=== PATIENT | female | born 1965 | race Caucasian/White ===

== ENCOUNTER → 2019-03-10 | Outpatient (CLI) | payer BC ==
[2019-03-10 16:13] LABS: T4, Free (Free Thyroxine) 1.2 ng/dL (0.80-1.80)
[2019-03-10 19:40] LABS: ACTH 7.79 pg/mL (0.00-45.99)
== END | disposition home or self-care (01) ==
LOC: LABWHC1 09:56
PROVIDERS: ATTEND Internal Medicine Endocrinology, Diabetes & Metabolism
DX: R23.2 Flushing (principal)
CPT/HCPCS: 36415; 82024; 82533; 83001; 84439; 84443; 84480

== ENCOUNTER → 2019-03-25 | Outpatient (CLI) | payer BC ==
[~2019-03-25] MED LIST: COSYNTROPIN 0.25 MG VIAL IVP ONE; SODIUM CHLORIDE 0.9% 500 ML 500 ML in EMPTY BAG 1 BAG IV PRN
[2019-03-25 09:26] VITALS: BP 154/81; PULSE 66; RESP 16; TEMP 98.8
[2019-03-25 23:04] LABS: ACTH 8.2 pg/mL (0.00-45.99)
== END | disposition home or self-care (01) ==
LOC: PROCWHC3 08:54
PROVIDERS: ATTEND Internal Medicine Endocrinology, Diabetes & Metabolism
DX: R23.2 Flushing (principal)
CPT/HCPCS: 83835; 84439; 82533; 83001; 84443; 82024; 84480; 96374; J0834; 82384

== ENCOUNTER → 2019-11-23 | Outpatient (CLI) | payer SELFPAY | END | disposition home or self-care (01) | LOC: LABWHC1 09:56 | PROVIDERS: ATTEND Otolaryngology | DX: J30.89 Other allergic rhinitis (principal) | CPT/HCPCS: 36415 ==

== ENCOUNTER → 2020-05-25 | Outpatient (CLI) | payer BC ==
--- NOTE | 2020-05-25 15:51 | US ---
EXAMINATION TYPE: US abdomen complete DATE OF EXAM: 05/25/2020 COMPARISON: NONE CLINICAL HISTORY: R10.13 epigastric pain, R10.30 Lower abd pain. EXAM MEASUREMENTS: Liver Length: 13.1 cm Gallbladder Wall: 0.1 cm CBD: 0.3 cm Spleen: 10.7 cm Right Kidney: 10.0 x 3.5 x 5.0 cm Left Kidney: 10.2 x 4.0 x 4.8 cm Pancreas: wnl as seen, tail partially obscured by overlying bowel gas Liver: wnl Gallbladder: wnl Evidence for sonographic Bergeron's sign: no CBD: wnl Spleen: wnl Right Kidney: No hydronephrosis or masses seen Left Kidney: No hydronephrosis or masses seen Upper IVC: wnl Abd Aorta: wnl IMPRESSION: 1. Visualized abdomen is unremarkable
== END | disposition home or self-care (01) ==
LOC: RADUSWWP 08:13
PROVIDERS: ATTEND Otolaryngology
DX: R10.13 Epigastric pain (principal); R10.30 Lower abdominal pain, unspecified; R22.2 Localized swelling, mass and lump, trunk; Z88.2 Allergy status to sulfonamides; Z91.048 Other nonmedicinal substance allergy status
CPT/HCPCS: 76700

== ENCOUNTER → 2021-01-16 | Outpatient (CLI) | payer SELFPAY ==
[2021-01-16 20:38] LABS: Follicle Stimulating Hormone 63.9 mIU/mL; T4, Free (Free Thyroxine) 1.2 ng/dL (0.80-1.80)
[2021-01-17 06:18] LABS: ACTH 7.39 pg/mL (0.00-45.99)
== END | disposition home or self-care (01) ==
LOC: LABWHC1 13:24
PROVIDERS: ATTEND Internal Medicine Endocrinology, Diabetes & Metabolism
DX: R61 Generalized hyperhidrosis (principal); R23.2 Flushing
CPT/HCPCS: 36415; 82024; 82533; 83001; 84439; 84443; 84480

== ENCOUNTER → 2021-01-24 | Outpatient (CLI) | payer BC | END | disposition home or self-care (01) | LOC: LABWHC1 09:12 | PROVIDERS: ATTEND Internal Medicine Endocrinology, Diabetes & Metabolism | DX: R61 Generalized hyperhidrosis (principal); R23.2 Flushing | CPT/HCPCS: 36415; 82384 ==

== ENCOUNTER 2022-07-27 12:16 | Emergency (ER) | payer OTHER ==
[2022-07-27 12:24] VITALS: TEMP 97.3
[2022-07-27] MEDS ORDERED: methylPREDNISolone SOD SUCCI 125 MG/2 ML VIAL IV STA (12:53)
[2022-07-27 13:36] LABS: Basophils # (A) 0.1 k/uL (0-0.2); Basophils % (A) 1 %; Eosinophils # (A) 0.1 k/uL (0-0.7); Eosinophils % (A) 2 %; HCT 45.4 % (34.0-46.0); HGB 15.6 gm/dL (11.4-16.0); Lymphocytes # (A) 1.5 k/uL (1.0-4.8); Lymphocytes % (A) 20 %; MCH 29.7 pg (25.0-35.0); MCHC 34.3 g/dL (31.0-37.0); MCV 86.6 fL (80.0-100.0); Mean Platelet Volume 6.9; Monocytes # (A) 0.4 k/uL (0-1.0); Monocytes % (A) 6 %; Neutrophils % (A) 68 %; Platelet Count 278 k/uL (150-450); RBC 5.25 m/uL (3.80-5.40); RDW 12.2 % (11.5-15.5); WBC 7.3 k/uL (3.8-10.6)
--- NOTE | 2022-07-27 13:52 | ED ---
Dizziness HPI - General Chief Complaint: Dizziness Stated Complaint: dizziness Time Seen by Provider: 07/27/22 12:25 Source: patient Mode of arrival: ambulatory Limitations: no limitations - History of Present Illness Initial Comments: 56-year-old female with past medical history of Mnire's and tinnitus who presents to the emergency department for vertigo. Reports that she began having tinnitus 2 weeks ago. She was seen in the ENT office. They placed her on a course of steroids. She finished the medication. On Thursday she began developing vertigo. She saw her primary care on Thursday who placed her on Valium. She has been taking the Valium and meclizine as directed without any improvement in her vertigo. States that her symptoms usually last only for half a day. The duration of her vertigo currently is uncommon for her. She denies any tinnitus at this time. Does admit to headache. No numbness, tingling or weakness in her extremities. No fevers. Denies any visual changes. Admits to some nausea without vomiting. Vertigo is worse with positional changes and better with resting. She denies any chiropractic manipulations of the neck. No recent head trauma. No other alleviating, corral boss modifying factors - Related Data Home Medications Medication Instructions Recorded Confirmed Amoxic-Pot Clav 875-125Mg 1 tab PO BID 07/27/22 07/27/22 [Augmentin 875-125] Meclizine [Antivert] 12.5 - 25 mg PO TID PRN 07/27/22 07/27/22 Simvastatin [Zocor] 20 mg PO HS 07/27/22 07/27/22 Triamterene-Hctz 37.5-25Mg 1 cap PO DAILY 07/27/22 07/27/22 [Dyazide 37.5-25 Capsule] diazePAM [Valium] 2.5 - 5 mg PO Q8H PRN 07/27/22 07/27/22 Allergies Allergy/AdvReac Type Severity Reaction Status Date / Time cefprozil [From Cefzil] Allergy Unknown Anaphylaxis Verified 07/27/22 14:43 & hives sulfamethoxazole Allergy Unknown Anaphylaxis Verified 07/27/22 14:43 [From Bactrim] & hives trimethoprim [From Bactrim] Allergy Unknown Anaphylaxis Verified 07/27/22 14:43 & hives Review of Systems ROS Statement: Those systems with pertinent positive or pertinent negative responses have been documented in the HPI. ROS Other: All systems not noted in ROS Statement are negative. Past Medical History Past Medical History: Hyperlipidemia Additional Past Medical History / Comment(s): Menieres. tinnitus History of Any Multi-Drug Resistant Organisms: None Reported Past Surgical History: AICD Additional Past Surgical History / Comment(s): D&C.(MAY 2014) Past Anesthesia/Blood Transfusion Reactions: Motion Sickness, Postoperative Nausea & Vomiting (PONV) Additional Past Anesthesia/Blood Transfusion Reaction / Comment(s): SEVERE PONV Past Psychological History: No Psychological Hx Reported Smoking Status: Never smoker Past Alcohol Use History: Occasional Past Drug Use History: None Reported - Past Family History Father Family Medical History: No Reported History General Exam Limitations: no limitations General appearance: alert, in no apparent distress Head exam: Present: atraumatic, normocephalic, normal inspection Eye exam: Present: normal appearance, PERRL, EOMI, nystagmus (lateral). Absent: scleral icterus, conjunctival injection, periorbital swelling ENT exam: Present: normal exam, mucous membranes moist Neck exam: Present: normal inspection. Absent: tenderness, meningismus, lymphadenopathy Respiratory exam: Present: normal lung sounds bilaterally. Absent: respiratory distress, wheezes, rales, rhonchi, stridor Cardiovascular Exam: Present: regular rate, normal rhythm, normal heart sounds. Absent: systolic murmur, diastolic murmur, rubs, gallop, clicks GI/Abdominal exam: Present: soft, normal bowel sounds. Absent: distended, tenderness, guarding, rebound, rigid Extremities exam: Present: normal inspection, full ROM, normal capillary refill. Absent: tenderness, pedal edema, joint swelling, calf tenderness Back exam: Present: normal inspection Neurological exam: Present: alert, oriented X3, CN II-XII intact Psychiatric exam: Present: normal affect, normal mood Skin exam: Present: warm, dry, intact, normal color. Absent: rash Course Vital Signs 07/27/22 07/27/22 07/27/22 12:19 15:14 16:22 Temperature 97.3 F L Pulse Rate 95 87 89 Respiratory 20 17 17 Rate Blood Pressure 124/89 142/95 141/82 O2 Sat by Pulse 98 98 99 Oximetry EKG Findings - EKG Comments: EKG Findings:: EKG demonstrates sinus rhythm with rate of 77. AZ interval 129. QRS 81. QTC of 400. No acute ST segment elevations or depressions Medical Decision Making - Medical Decision Making Was pt. sent in by a medical professional or institution? PCP office Did you speak to anyone other than the patient for history? no Did you review nursing and triage notes? yes and i agree Were old charts reviewed? no Differential Diagnosis? cerebellar stroke, vbi, menieres, bppv EKG interpreted by me (3pts min.)? yes X-rays interpreted by me (1pt min.)? no CT interpreted by me (1pt min.)? yes U/S interpreted by me (1pt. min.)? no What testing was considered but not performed? (CT, X-rays, U/S, labs)? Why? no What meds were considered but not given? Why? none Did you discuss the management of the patient with other professionals? no Did you reconcile home meds? yes Was smoking cessation discussed for >3mins.? no Was critical care preformed (if so, how long)? no Were there social determinants of health that impacted care today? How? (Homelessness, low income, unemployed, alcoholism, drug addiction, transportation, low edu. Level, literacy, decrease access to med. care, residential, rehab)? no Was there de-escalation of care discussed even if they declined? (Discuss DNR or withdrawal of care, Hospice)? no What co-morbidities impacted this encounter? (DM, HTN, Smoking, COPD, CAD, Cancer, CVA, Hep., AIDS, mental health diagnosis, sleep apnea, morbid obesity)? none Was patient admitted / discharged? Upon arrival patient was placed into room 18. History and physical exam is performed. IV access was established. Laboratory studies were conducted. Lab studies are reviewed and within normal limits. She was given 5 mg of IV Valium and [address] of Solu-Medrol. CT of the head and neck are performed which demonstrated no acute process. I reevaluated the patient and she continues to have vertiginous symptoms. Scopolamine patch was applied. I discussed diagn osis, differential and treatment options. The patient has taken steroids, meclizine, Valium and hydrochlorothiazide in the outpatient setting. Informed her that due to the extensive outpatient treatment which has been failing, that I do recommend admission for neurology consultation and possible MRI. Patient refused admission. States that she has appointment with ENT tomorrow that she would prefer to follow up with. I did discuss the possible treatment options. Patient requesting IV diuretic for which she was given 40 mg doses IV. I recommend that the patient take Valium 3 times daily. May additionally take Claritin, Benadryl or meclizine. Follow up with the ENT tomorrow. Should she be agreeable to further workup and admission she should return to the emergency room. Patient agreeable and was discharged home in stable condition Undiagnosed new problem with uncertain prognosis? yes Drug Therapy requiring intensive monitoring for toxicity (Heparin, Nitro, Insulin, Cardizem)? no Were any procedures done? no Diagnosis/symptom? acute vertigo Acute, or Chronic, or Acute on Chronic? acute on chronic Uncomplicated (without systemic symptoms) or Complicated (systemic symptoms)? complicated Side effects of treatment? sedation, swelling, weight gain, adrenal insuff Exacerbation, Progression, or Severe Exacerbation] severe exacerbation Poses a threat to life or bodily function? yes - Lab Data Result diagrams: 07/27/22 13:13 07/27/22 13:13 Lab Results 07/27/22 07/27/22 Range/Units 13:13 13:13 WBC 7.3 (3.8-10.6) k/uL RBC 5.25 (3.80-5.40) m/uL Hgb 15.6 (11.4-16.0) gm/dL Hct 45.4 (34.0-46.0) % MCV 86.6 (80.0-100.0) fL MCH 29.7 (25.0-35.0) pg MCHC 34.3 (31.0-37.0) g/dL RDW 12.2 (11.5-15.5) % Plt Count 278 (150-450) k/uL MPV 6.9 Neutrophils % 68 % Lymphocytes % 20 % Monocytes % 6 % Eosinophils % 2 % Basophils % 1 % Neutrophils # 5.0 (1.3-7.7) k/uL Lymphocytes # 1.5 (1.0-4.8) k/uL Monocytes # 0.4 (0-1.0) k/uL Eosinophils # 0.1 (0-0.7) k/uL Basophils # 0.1 (0-0.2) k/uL Sodium 139 (137-145) mmol/L Potassium 4.3 (3.5-5.1) mmol/L Chloride 105 (98-107) mmol/L Carbon Dioxide 27 (22-30) mmol/L Anion Gap 7 mmol/L BUN 17 (7-17) mg/dL Creatinine 0.88 (0.52-1.04) mg/dL Est GFR (CKD-EPI)AfAm 85 (>60 ml/min/1.73 sqM) Est GFR (CKD-EPI)NonAf 74 (>60 ml/min/1.73 sqM) Glucose 105 H (74-99) mg/dL Calcium 9.2 (8.4-10.2) mg/dL Total Bilirubin 0.7 (0.2-1.3) mg/dL AST 21 (14-36) U/L ALT 28 (4-34) U/L Alkaline Phosphatase 74 (38-126) U/L Total Protein 7.1 (6.3-8.2) g/dL Albumin 4.2 (3.5-5.0) g/dL Disposition Clinical Impression: Positional vertigo Disposition: HOME SELF-CARE Condition: Stable Instructions (If sedation given, give patient instructions): Vertigo (ED) Additional Instructions: Take 5 mg of valium every 8 hours. Take benadryl every 6 hours (2 hours spaced out after your valium). Continue the water pill starting tomorrow. Return should you agree to further testing and admission. Is patient prescribed a controlled substance at d/c from ED?: No Referrals: Live Haider MD [Primary Care Provider] - 1-2 days Umberto Moulton MD [STAFF PHYSICIAN] - 1-2 days Time of Disposition: 16:03
[2022-07-27 14:05] LABS: Albumin 4.2 g/dL (3.5-5.0); Calcium 9.2 mg/dL (8.4-10.2); Potassium 4.3 mmol/L (3.5-5.1); Total Bilirubin 0.7 mg/dL (0.2-1.3); Total Protein 7.1 g/dL (6.3-8.2)
[2022-07-27] MEDS ORDERED: SCOPOLAMINE 1 MG/72 HR PATCH TRANSDERM STA (14:45)
--- NOTE | 2022-07-27 15:00 | CT ---
EXAMINATION TYPE: CT brain wo con DATE OF EXAM: 07/27/2022 COMPARISON: None HISTORY: Vertigo CT DLP: mGycm Automated exposure control for dose reduction was used. Ventricles have normal size. There is no mass effect or midline shift. No sign of intracranial hemorr susan. Calvarium is intact. There is normal aeration of the mastoid sinuses. Skull base is intact. No evidence of posterior fossa mass. IMPRESSION: Normal unenhanced head CT scan.
[2022-07-27 15:17] VITALS: RESP 17
--- NOTE | 2022-07-27 15:29 | CT ---
EXAMINATION TYPE: CT angio head neck DATE OF EXAM: 07/27/2022 COMPARISON: HISTORY: Vertigo CT DLP: mGycm Automated exposure control for dose reduction was used. CONTRAST: Contrast was Isovue 65 mL. There are Three-D postprocessed images. Images obtained from the aortic arch to the vertex of the brain with the IV contrast. There is normal branching pattern of the great vessels of the aortic arch. There is arterial flow in both subclavian arteries. There is arterial flow in the common internal and external carotid arteries bilaterally. There is wide patency of the carotid artery bifurcations. There is arterial flow in bot h vertebral arteries. There is arterial flow in the anterior middle and posterior cerebral arteries. There is arterial flow in the vertebrobasilar artery system. No mass effect. No evidence of intracranial aneurysm or neovas cularity. No evidence of hemodynamic stenosis. There is normal enhancement of the venous sinuses. IMPRESSION: Negative CT angiogram of the neck. Negative CT angiogram of the brain.
[2022-07-27] MEDS ORDERED: FUROSEMIDE 10 MG/ML 4 ML VIAL IV STA (16:00)
[2022-07-27 16:24] VITALS: BP 141/82; PULSE 89
== END 2022-07-27 16:23 | disposition home or self-care (01) ==
LOC: EC 12:16
DX: H81.10 Benign paroxysmal vertigo, unspecified ear (principal); E78.5 Hyperlipidemia, unspecified; Z88.2 Allergy status to sulfonamides; Z88.1 Allergy status to other antibiotic agents; Z79.899 Other long term (current) drug therapy
CPT/HCPCS: 36415; 93005; 80053; 85025; 70496; 70450; 70498; 99284; 96374; 96375 ×2; J1940; J2930; J3360; Q9967

== ENCOUNTER → 2022-10-07 | Outpatient (CLI) | payer OTHER ==
--- NOTE | 2022-10-07 10:31 | CT ---
EXAMINATION TYPE: CT iac wo con CT DLP: 142.70 mGycm, Automated exposure control for dose reduction was used. DATE OF EXAM: 10/07/2022 8:09 AM INDICATION: Patient age:Female; 56 years old; Reason for study: hearing loss H91.2; PHH. COMPARISON: Brain 07/27/2022. TECHNIQUE: Multiple thin axial images were obtained through the temporal bones and internal auditory canals. Additional coronal reformatted images were obtained. No IV contrast was utilized. STENVER a nd POSCHL views were created on a separate work station. FINDINGS: Right Temporal Bone: External Ear: The external auditory canal is unremarkable, The tympanic membrane is present and unrem arkable. Middle Ear: The ossicles demonstrate a normal appearance. Prussak's space is clear and the scutum i s intact. There is no evidence of osseous erosion and the tegmen tympani is intact. Inner Ear: Cochlea, vestibule and semi circular canals are unremarkable. No evidence of carotid vicky l dehiscence. Two and a half turns of the cochlea are identified. The vestibular aqueduct is not enl arged. Mastoid Air Cells: The mastoid air cells are clear. The tegmen mastoideum is intact. The aditus ad an trum is clear. Internal Auditory Canal: The internal auditory canal is unremarkable. Left Temporal Bone: External Ear: The external auditory canal is unremarkable, The tympanic membrane is present and unrem arkable. Middle Ear: The ossicles demonstrate a normal appearance. Prussak's space is clear and the scutum i s intact. There is no evidence of osseous erosion and the tegmen tympani is intact. Inner Ear: Cochlea, vestibule and semi circular canals are unremarkable. No evidence of carotid vicky l dehiscence. Two and a half turns of the cochlea are identified. The vestibular aqueduct is not enl arged. Mastoid Air Cells: The mastoid air cells are clear. The tegmen mastoideum is intact. The aditus ad an trum is clear. Internal Auditory Canal: The internal auditory canal is unremarkable. IMPRESSION: Normal internal auditory canal study.
== END | disposition home or self-care (01) ==
LOC: RADCTMAIN 07:41
PROVIDERS: ATTEND Otolaryngology Otology & Neurotology
DX: H83.8X1 Other specified diseases of right inner ear (principal); H83.8X2 Other specified diseases of left inner ear; H91.20 Sudden idiopathic hearing loss, unspecified ear
CPT/HCPCS: 70480

== ENCOUNTER → 2022-10-15 | Outpatient (CLI) | payer OTHER ==
[2022-10-16 03:14] LABS: HCT 39.8 % (37.2-46.3); HGB 13.1 g/dL (12.0-15.0); MCH 30.3 pg (27.0-32.0); MCHC 32.9 g/dL (32.0-37.0); MCV 91.9 fL (80.0-97.0); NRBC Per 100 WBC 0 /100 WBCS (0.0-0.0); Platelet Count 276 X 10*3/uL (140-440); RBC 4.33 X 10*6/uL (4.10-5.20); RDW 12.7 % (11.5-14.5); WBC 7.62 X 10*3/uL (4.50-10.00)
[2022-10-16 03:27] LABS: African American GFR (CKD) 58.1 (60.0-200.0); Anion Gap 14.2 mmol/L (10.00-18.00); BUN/Creat Ratio 15.25 Ratio (12.00-20.00); Blood Urea Nitrogen 18.3 mg/dL (9.0-27.0); Calcium 9.9 mg/dL (8.7-10.3); Carbon Dioxide 24.8 mmol/L (20.0-27.5); Non-African American GFR(CKD) 50.1 (60.0-200.0); Potassium 3.9 mmol/L (3.5-5.5)
== END | disposition home or self-care (01) ==
LOC: LABWHC1 16:20
PROVIDERS: ATTEND Internal Medicine Cardiovascular Disease
DX: I49.3 Ventricular premature depolarization (principal)
CPT/HCPCS: 36415; 80048; 84443; 85027

== ENCOUNTER → 2023-03-07 | Outpatient (CLI) | payer OTHER ==
[2023-03-07 23:20] LABS: HCT 43.3 % (37.2-46.3); MCH 29.3 pg (27.0-32.0); MCHC 32.3 d/dL (32.0-37.0); MCV 90.6 FL (80.0-97.0); Mean Platelet Volume 10.2 FL (9.5-12.2); NRBC Per 100 WBC 0 X 10*3/uL (0.00-0.01); Platelet Count 307 X 10*3/uL (140-440); RBC 4.78 X 10*6/uL (4.10-5.20); WBC 4.42 X 10*3/uL (4.50-10.00)
[2023-03-07 23:41] LABS: Erythrocyte Sedimentation Rate 13 mm/Hr (0-30)
[2023-03-08 07:51] LABS: DHEA Sulfate 64.1 UG/DL (39.0-800.0)
[2023-03-08 08:03] LABS: ALT 22 U/L (8-44); AST 19 U/L (13-35); Albumin 4.6 d/dL (3.8-4.9); Alkaline Phosphatase 94 U/L (41-126); Blood Urea Nitrogen 12.8 mg/dL (9.0-27.0); C Reactive Protein <0.30 mg/dL (0.00-0.80); Calcium 9.9 mg/dL (8.7-10.3); Carbon Dioxide 23.7 mmol/L (21.6-31.8); Chloride 105 mmol/L (96-109); Estradiol <20.0 pg/mL; Globulin 2.3 d/dL (1.6-3.3); Glucose 95 mg/dL (70-110); Potassium 4.5 mmol/L (3.5-5.5); Sodium 141 mmol/L (135-145); T4, Free (Free Thyroxine) 1.33 ng/dL (0.80-1.80); Total Bilirubin 0.3 mg/dL (0.3-1.2); Total Protein 6.9 d/dL (6.2-8.2)
[2023-03-08 08:50] LABS: Thyroid Peroxidase Antibodies 10.3 U/mL (0.0-33.0)
[2023-03-08 09:00] LABS: Follicle Stimulating Hormone 61.7 mIU/mL
[2023-03-10 18:20] LABS: Gliadin AB IgA, Deaminated Negative (Negative); Gliadin AB IgA, Unit <0.5 U/mL; Gliadin AB IgG, Deaminated Negative (Negative); Gliadin AB IgG, Unit <0.4 U/mL
[2023-03-12 14:28] LABS: Albumin, LC/MS/MS 4.3 g/dL (3.6-5.1); Testosterone, Free, LC/MS/MS 1.1 pg/mL (0.2-5.0)
== END | disposition home or self-care (01) ==
LOC: LABWHC1 09:31
PROVIDERS: ATTEND Internal Medicine Gastroenterology
DX: M25.50 Pain in unspecified joint (principal); L65.9 Nonscarring hair loss, unspecified; N95.1 Menopausal and female climacteric states; R14.0 Abdominal distension (gaseous); R53.83 Other fatigue; R19.4 Change in bowel habit
CPT/HCPCS: 36415; 80053; 82040; 82306; 82533; 82607; 82627; 82670; 83001; 83036; 83516; 84144; 84270; 84403; 84439; 84443; 84481; 84482; 85027; 85652; 86140; 86376

== ENCOUNTER → 2023-05-01 | Day surgery (SDC) | payer OTHER ==
[~2023-05-01] MED LIST changes: -COSYNTROPIN 0.25 MG VIAL IVP ONE; +LACTATED RINGERS 1,000 ML IV SCH; +LIDOCAINE 1% INJ 10MG/ML (20 ML MDV) ONE; +ONDANSETRON 4 MG/2 ML VIAL ONE; +PROPOFOL 10 MG/ML 20 ML VIAL IV ONE; +SCOPOLAMINE 1 MG/72 HR PATCH TRANSDERM ONE; -SODIUM CHLORIDE 0.9% 500 ML 500 ML in EMPTY BAG 1 BAG IV PRN
[2023-05-01 11:53] VITALS: RESP 16; TEMP 97.8
--- NOTE | 2023-05-01 12:47 | P.PCN ---
Date of Procedure: 05/01/23 Procedure(s) Performed: BRIEF HISTORY: Patient is a 57-year-old, pleasant, female scheduled for an upper endoscopy as a part of evaluation of GERD and intermittent dysphagia to solids. PROCEDURE PERFORMED: Esophagogastroduodenoscopy with biopsy and dilation PREOPERATIVE DIAGNOSIS: GERD and intermittent dysphagia to solids. IV sedation per anesthesia. PROCEDURE: After informed consent was obtained, the patient was brought into the endoscopy unit. IV sedation was administered by Anesthesia under continuous monitoring. Initially the Olympus GIF-140 video endoscope was inserted into the mouth. Esophagus intubated without any difficulty. It was gradually advanced into the stomach and duodenum and carefully examined. The bulb and the second part of the duodenum appeared normal. The scope at this time was withdrawn to the stomach, adequately insufflated with air, and upon careful examination, m ucosa of the antrum, body, cardia and the fundus appeared normal. The scope was then withdrawn into the esophagus. Mall hiatal hernia noted. The GE junction was located at 39 cm from the incisors. There was a distal esophageal Schatzki's ring identified and this was dilated using 18 mm TTS balloon for 30 seconds and follow with the dilation there was a superficial mucosal tear with oozing identified and hence further dilation was not performed. The mucosa of the mid and distal esophagus appeared slightly thickened with longitudinal ridges and follow suspicious for recent bleed esophagitis and multiple biopsies were done from the mid and distal esophagus. Rest of esophagus appeared normal and the patient tolerated the procedure well. IMPRESSION: 1. Distal esophageal Schatzki's ring status post balloon dilation using 18 mm TTS balloon. 2. Small hiatal hernia 3.. Thickened mucosal folds in the mid and distal esophagus with longitudinal ridges suspicious for years of age esophagitis status post multiple biopsies. RECOMMENDATIONS: The findings of this examination were discussed with the patient as well as a family. She was advised to follow with the biopsy results. She'll remain on clear liquids for 2 hours. In the meantime advised to start on Prilosec 20 mg daily and follow antrum reflux measures. Follow up in office in 2 weeks..
[2023-05-01 13:17] VITALS: BP 122/83; PULSE 78
== END ==
LOC: ORWHC2ENDO 10:35
PROVIDERS: ATTEND Internal Medicine Gastroenterology
DX: D72.10 Eosinophilia, unspecified (principal); K21.9 Gastro-esophageal reflux disease without esophagitis; K44.9 Diaphragmatic hernia without obstruction or gangrene; K22.2 Esophageal obstruction; I10 Essential (primary) hypertension; Z95.0 Presence of cardiac pacemaker; F17.200 Nicotine dependence, unspecified, uncomplicated; Z79.899 Other long term (current) drug therapy
CPT/HCPCS: 88305; 43239; 43249; J2405; J2001; J2704; C1726